=== PATIENT | male | born 1950 | race Caucasian/White ===

== ENCOUNTER 2019-03-05 07:29 | Day surgery (SDC) | payer MEDICARE, BC ==
[2019-03-05] MEDS: Lactated Ringers 1,000 ML IV SCH (08:13)
[2019-03-05] MEDS ORDERED: Midazolam 1 MG/ML 2 ML SDV ONE (08:21)
[2019-03-05] MEDS ORDERED: fentaNYL 100 MCG/2 ML SDV ONE (08:21)
[2019-03-05] MEDS ORDERED: Propofol 200 MG/20 ML SDV ONE (08:21)
[2019-03-05] MEDS ORDERED: diphenhydrAMINE 50 MG/ML SDV ONE (09:14)
--- NOTE | 2019-03-08 09:18 | OR ---
DATE OF PROCEDURE: 03/05/2019 SURGEON: Turner Shanks MD PREOPERATIVE DIAGNOSIS: History of adenomatous colon polyps. POSTOPERATIVE DIAGNOSES: Diverticulosis, small transverse colon polyp, history of adenomatous colon polyp. PROCEDURE PERFORMED: Colonoscopy to the cecum with biopsy resection of small transverse colon polyp. ANESTHESIA: IV anesthesia with monitored anesthesia care. INDICATION: This 68-year-old white male is referred for a colonoscopy. His last colonoscopic exam was done 5 years ago, which was clear. Prior to that he has had adenomatous polyps removed. I counseled him for the procedure, including risks and alternatives, and he gave his informed consent to proceed. DESCRIPTION OF PROCEDURE: The patient was placed in the left lateral decubitus position. IV anesthesia was administered by the Anesthesia Service. Time-out was held. A rectal exam was performed, which was unremarkable. The flexible video Olympus colonoscope was introduced through his anus, up his rectum, out his colon all the way to the cecum. En route, we saw multiple left-sided diverticula. There was no bleeding or inflammation associated with them. Once the cecum was reached, the scope was slowly withdrawn, examining the mucosa throughout. No mucosal abnormalities noted until we reached the more distal transverse colon. Here, a small polyp was seen, which was removed with the biopsy forceps. The scope was withdrawn further with no other additional lesions noted. The scope was retroflexed in the rectum with the distal rectum appearing unremarkable. The scope was straightened and removed. He tolerated the procedure well. Turner Shanks MD /[id number]
== END 2019-03-05 12:04 | disposition home or self-care (01) ==
LOC: JP.SDS 07:29
PROVIDERS: ATTEND Surgery
DX: Z12.11 Encounter for screening for malignant neoplasm of colon (principal); K57.30 Diverticulosis of large intestine without perforation or abscess without bleeding; K63.89 Other specified diseases of intestine; E11.9 Type 2 diabetes mellitus without complications; E78.5 Hyperlipidemia, unspecified; Z88.8 Allergy status to other drugs, medicaments and biological substances; Z86.010 Personal history of colon polyps
CPT/HCPCS: 45380; J1200; J2250; J2704; J3010; J7120

== ENCOUNTER 2020-07-06 08:26 | Emergency (ER) | payer MEDICARE, BC ==
[2020-07-06] MEDS ORDERED: Sodium Chloride 0.9% 10 ML Syringe FLUSH PRN (08:56)
[2020-07-06] MEDS ORDERED: Alum Hydrox/Mag Hydrox/Simeth 15 ML, Lidocaine 2% 15 ML PO ONE ×2 (09:01)
--- NOTE | 2020-07-06 09:02 | EDM.PDOC ---
ED HPI GENERAL MEDICAL PROBLEM - General Chief Complaint: Abdominal Pain Stated Complaint: ABDOMINAL PAIN Time Seen by Provider: 07/06/20 08:50 Source of Information: Reports: Patient, Old Records, RN History Limitations: Reports: No Limitations - History of Present Illness INITIAL COMMENTS - FREE TEXT/NARRATIVE: 69 yo male presents with epigastric pain since about 1 pm yesterday. Sx's began after eating a macaroni salad and was severe until about 5 am today, now still present but less severe. Pain radiated up substernally. No fever. No change in bowels. Did have mild nausea when the pain was more severe. Denies alcohol use. Does have his gallbladder. He called the clinic and was directed to the ER. Has not eaten since the onset of his sx's. Has had this same pain in the past. Onset: Sudden Onset Date: 07/05/20 Onset Time: 13:00 Duration: Hour(s):, Improving Location: Reports: Abdomen Quality: Reports: Pressure Severity: Moderate (now, was more severe earlier) Improves with: Reports: Other (? not eating) Worsens with: Reports: Eating (possibly eating) Context: Reports: Other (See HPI) Associated Symptoms: Reports: Nausea/Vomiting (no vomiting.). 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) - Related Data Allergies Allergy/AdvReac Type Severity Reaction Status Date / Time [id number] Reductase Allergy Other Verified 07/06/20 08:43 Inhibitor Home Meds: Home Meds Ascorbic Acid [Vitamin C] 500 mg PO DAILY 11/23/13 [History] Omeprazole [Prilosec] 20 mg PO DAILY 11/23/13 [History] Warfarin [Coumadin] 5 mg PO .MF 11/23/13 [History] Tamsulosin HCl 0.4 mg PO DAILY 03/03/19 [History] Triamcinolone Acetonide [Triamcinolone Acetonide 0.1% Crm] 1 applic TOP BID 03/03/19 [History] Warfarin [Coumadin] 10 mg PO .ROW 03/03/19 [History] Zinc 50 mg PO DAILY 07/06/20 [History] Past Medical History HEENT History: Reports: Impaired Vision Cardiovascular History: Reports: High Cholesterol Gastrointestinal History: Reports: Colon Polyp, GERD Neurological History: Reports: Migraines Endocrine/Metabolic History: Reports: Obesity/BMI 30+ - Infectious Disease History Infectious Disease History: Reports: Measles, Novel Coronavirus - Past Surgical History Head Surgeries/Procedures: Reports: None Cardiovascular Surgical History: Reports: None GI Surgical History: Reports: Colonoscopy, EGD, Hernia Repair/Other Endocrine Surgical History: Reports: None Neurological Surgical History: Reports: None Dermatological Surgical History: Reports: None Social & Family History - Family History Family Medical History: No Pertinent Family History - Tobacco Use Tobacco Use Status *Q: Never Tobacco User Second Hand Smoke Exposure: No - Caffeine Use Caffeine Use: Reports: Coffee - Recreational Drug Use Recreational Drug Use: No ED ROS GENERAL - Review of Systems Review Of Systems: See Below Constitutional: Reports: No Symptoms HEENT: Reports: No Symptoms Respiratory: Reports: No Symptoms Cardiovascular: Reports: No Symptoms GI/Abdominal: Reports: Abdominal Pain (epigastric), Nausea. Denies: Black Stool, Bloody Stool, Constipation, Diarrhea, Distension, Hematemesis, Hematochezia, Melena, Vomiting : Reports: No Symptoms Musculoskeletal: Reports: No Symptoms Skin: Reports: No Symptoms Neurological: Reports: No Symptoms ED EXAM, GI/ABD - Physical Exam Exam: See Below Exam Limited By: No Limitations General Appearance: Alert, WD/WN, No Apparent Distress, Obese Eyes: Bilateral: Normal Appearance Ears: Normal External Exam, Normal Canal, Hearing Grossly Normal Nose: Normal Inspection, No Blood Throat/Mouth: Normal Lips, Normal Oropharynx, Normal Voice, No Airway Compromise, Other (slightly dry oral mucosa) Head: Atraumatic, Normocephalic Neck: Normal Inspection Respiratory/Chest: No Respiratory Distress, Lungs Clear, Normal Breath Sounds, No Accessory Muscle Use Cardiovascular: Regular Rate, Rhythm, No Edema GI/Abdominal Exam: Normal Bowel Sounds, Soft, No Distention (protuberant with ventral hernia), Tender (epigastrium). No: Non-Tender, Distended, Guarding, Rigid, Rebound Extremities: Normal Inspection Neurological: Alert, Oriented, CN II-XII Intact, Normal Cognition, No Motor/Sensory Deficits Psychiatric: Normal Affect, Normal Mood Skin Exam: Warm, Dry, Intact, Normal Color, No Rash Course - Vital Signs Text/Narrative:: Dr. Quiroz called @ 11:26h. Last Recorded V/S: Last Vital Signs Temp 36.2 C 07/06/20 08:34 Pulse 91 07/06/20 08:34 Resp 14 07/06/20 08:34 BP 180/93 H 07/06/20 08:34 Pulse Ox 98 07/06/20 08:34 - Orders/Labs/Meds Orders: Active Orders 24 hr Category Date Time Status Sodium Chloride 0.9% [Saline Flush] Med 07/06/20 08:56 Active 10 ml FLUSH ASDIRECTED PRN Saline Lock Insert [OM.PC] Routine Oth 07/06/20 08:56 Ordered Medication Orders Sodium Chloride (Saline Flush) 10 ml FLUSH ASDIRECTED PRN PRN Reason: Keep Vein Open Last Admin: 07/06/20 09:09 Dose: 10 ml Documented by: SARTHAK Labs: Laboratory Tests 07/06/20 07/06/20 07/06/20 Range/Units 08:57 09:05 09:09 WBC 8.7 (4.5-11.0) K/uL RBC 5.91 H (4.30-5.90) M/uL Hgb 16.4 H (12.0-15.0) g/dL Hct 50.3 (40.0-54.0) % MCV 85 (80-98) fL MCH 28 (27-31) pg MCHC 33 (32-36) % Plt Count 199 (150-400) K/uL PT 21.1 H (9.5-12.0) sec INR 1.96 H (0.80-1.20) Sodium 141 (140-148) mmol/L Potassium 3.4 L (3.6-5.2) mmol/L Chloride 104 (100-108) mmol/L Carbon Dioxide 25 (21-32) mmol/L Anion Gap 15.4 H (5.0-14.0) mmol/L BUN 14 (7-18) mg/dL Creatinine 0.8 (0.8-1.3) mg/dL Est Cr Clr Drug Dosing 90.20 mL/min Estimated GFR (MDRD) > 60 (>60) Glucose 148 H (74-106) mg/dL Calcium 8.7 (8.5-10.1) mg/dL Total Bilirubin 0.9 (0.2-1.0) mg/dL AST 32 (15-37) U/L ALT 73 (12-78) U/L Alkaline Phosphatase 84 (46-116) U/L Troponin I < 0.017 (0.000-0.056) ng/mL Total Protein 6.5 (6.4-8.2) g/dL Albumin 3.4 (3.4-5.0) g/dL Globulin 3.1 (2.3-3.5) g/dL Albumin/Globulin Ratio 1.1 L (1.2-2.2) Lipase 123 (73-393) U/L Meds: Medications Generic Name Dose Route Start Last Admin Trade Name Freq PRN Reason Stop Dose Admin Sodium Chloride 10 ml 07/06/20 08:56 07/06/20 09:09 Saline Flush FLUSH 10 ml ASDIRECTED PRN Administration Keep Vein Open Discontinued Medications Generic Name Dose Route Start Last Admin Trade Name Freq PRN Reason Stop Dose Admin Al Hydroxide/Mg Hydroxide 15 0 ml 07/06/20 09:01 07/06/20 09:09 ml/ Lidocaine HCl 15 ml PO 07/06/20 09:02 15 ml ONETIME ONE Administration Simethicone 160 mg 07/06/20 10:48 07/06/20 10:51 Simethicone PO 07/06/20 10:49 160 mg ONETIME ONE Administration - Radiology Interpretation Free Text/Narrative:: GB ultrasound-positive Maldonado sign, stone seen near neck of GB, lots of surrounding intestinal air. - Re-Assessments/Exams Free Text/Narrative Re-Assessment/Exam: 07/06/20 09:47 No change in sx's with GI cocktail po. Free Text/Narrative Re-Assessment/Exam: 07/06/20 11:12 Was given 160 mg of simethicone for his intestinal gas problem. 07/06/20 11:24 No change with simethicone. Departure - Departure Time of Disposition: 12:56 Disposition: Admitted As Inpatient 64 Condition: Fair Clinical Impression: Biliary colic, Blood glucose elevated HTN (hypertension) Qualifiers: Hypertension type: unspecified Qualified Code(s): I10 - Essential (primary) hypertension - Discharge Information *PRESCRIPTION DRUG MONITORING PROGRAM REVIEWED*: No *COPY OF PRESCRIPTION DRUG MONITORING REPORT IN PATIENT TICO: No Referrals: PCP,None [Primary Care Provider] - Forms: ED Department Discharge Sepsis Event Note (ED) - Evaluation Sepsis Screening Result: No Definite Risk - Focused Exam Vital Signs: Vital Signs Temp Pulse Resp BP Pulse Ox 02/25/21 08:34 36.2 C 91 14 180/93 H 98 07/06/20 08:33 36.2 C 91 14 180/93 H 98 - My Orders Last 24 Hours: My Active Orders 07/06/20 08:56 Sodium Chloride 0.9% [Saline Flush] 10 ml FLUSH ASDIRECTED PRN Saline Lock Insert [OM.PC] Routine - Assessment/Plan Last 24 Hours: My Active Orders 07/06/20 08:56 Sodium Chloride 0.9% [Saline Flush] 10 ml FLUSH ASDIRECTED PRN Saline Lock Insert [OM.PC] Routine
[2020-07-06] MEDS ORDERED: Simethicone 80 MG Tab.Chew PO ONE (10:48)
--- NOTE | 2020-07-06 11:29 | US ---
Abdomen Ltd CLINICAL HISTORY: Postprandial epigastric pain COMPARISON: None. TECHNIQUE: Real-time images were obtained through the right upper quadrant. FINDINGS: The liver is free of mass or biliary dilatation. There is diffusely increased echogenicity with some beam drop-off.. The gallbladder contains multiple small stones. There is gallbladder wall thickening at 4 mm. There appears to be a small amount of pericholecystic fluid at the hepatic interface. The common bile duct measures 4 mm. The pancreas is moderately obscured. The right kidney measures 11.6 x 4.6 x 6.3 cm.. The IVC is obscured. IMPRESSION: Cholelithiasis with some mild gallbladder wall thickening. There also appears to be some minimal pericholecystic fluid. Acute cholecystitis is not excluded. No biliary dilatation Pancreas and IVC are obscured by bowel gas
[2020-07-06] MEDS ORDERED: Benzocaine/Cetylpyridinium/Menthol Lozenge MUCMEM PRN (13:20)
[2020-07-06] MEDS ORDERED: fentaNYL 100 MCG/2 ML SDV IVPUSH PRN (13:20)
[2020-07-06] MEDS ORDERED: Sodium Chloride 0.9% 10 ML SDV IV SCH (13:30)
[2020-07-06] MEDS ORDERED: Bupivacaine 0.5% 50 ML MDV ONE (13:39)
[2020-07-06] MEDS ORDERED: Lidocaine 1% with EPINEPHrine 1:100,000 50 ML MDV ONE (13:39)
[2020-07-06] MEDS ORDERED: Sodium Chloride 0.9% 1,000 ML IV SCH (13:45)
[2020-07-06] MEDS ORDERED: ceFAZolin 2 GM in Premix Bag 1 BAG IV SCH (14:00)
[2020-07-06] MEDS ORDERED: Enoxaparin 40 MG/0.4 ML Syringe SUBCUT ONE (14:00)
[2020-07-06] MEDS ORDERED: metroNIDAZOLE/Normal Saline 500 MG in Premix Bag 1 BAG IV SCH (14:30)
== END 2020-07-06 13:19 | disposition critical access hospital (66) ==
LOC: JP.ED 08:26 → JP.SDS 12:59
DX: K80.50 Calculus of bile duct without cholangitis or cholecystitis without obstruction (principal); I10 Essential (primary) hypertension; R73.9 Hyperglycemia, unspecified; K21.9 Gastro-esophageal reflux disease without esophagitis; E66.9 Obesity, unspecified; Z68.35 Body mass index [BMI] 35.0-35.9, adult; Z88.8 Allergy status to other drugs, medicaments and biological substances; Z79.899 Other long term (current) drug therapy; Z20.822 Contact with and (suspected) exposure to COVID-19
CPT/HCPCS: 36415; 76705; 76705-26; 80053; 83690; 84484; 85027; 85610; 99285; A9270-GY; J1650; J3490; U0002

== ENCOUNTER 2020-07-10 05:59 | Day surgery (SDC) | payer MEDICARE, BC ==
[2020-07-10] MEDS: Sodium Chloride 0.9% 1,000 ML IV SCH ×2 (06:47→11:57)
[2020-07-10] MEDS ORDERED: ceFAZolin 2 GM in Premix Bag 1 BAG IV ONE (07:15)
[2020-07-10] MEDS ORDERED: metroNIDAZOLE/Normal Saline 500 MG in Premix Bag 1 BAG IV ONE (07:15)
[2020-07-10] MEDS ORDERED: Neostigmine Methylsulfate 1 MG/ML 5 ML Syringe ONE (07:20)
[2020-07-10] MEDS ORDERED: Ondansetron 4 MG/2 ML SDV ONE (07:20)
[2020-07-10] MEDS ORDERED: Dexamethasone 4 MG/ML SDV ONE (07:20)
[2020-07-10] MEDS ORDERED: Glycopyrrolate 0.2 MG/ML 5 ML MDV ONE (07:20)
[2020-07-10] MEDS ORDERED: Succinylcholine 200 MG/10 ML MDV ONE (07:20)
[2020-07-10] MEDS ORDERED: Rocuronium 50 MG/5 ML Vial ONE (07:20)
[2020-07-10] MEDS ORDERED: Propofol 200 MG/20 ML SDV ONE (07:20)
[2020-07-10] MEDS ORDERED: fentaNYL 250 MCG/5 ML SDV ONE (07:22)
[2020-07-10] MEDS ORDERED: diphenhydrAMINE 50 MG/ML SDV ONE (07:23)
[2020-07-10] MEDS ORDERED: Acetaminophen/HYDROcodone 325-5 MG Tab PO PRN (07:38)
[2020-07-10] MEDS ORDERED: Zolpidem 5 MG Tab PO PRN (07:38)
[2020-07-10] MEDS ORDERED: Docusate Sodium 100 MG Cap PO PRN (07:38)
[2020-07-10] MEDS ORDERED: hydrOXYzine HCL 100 MG/2 ML SDV IM PRN (07:38)
[2020-07-10] MEDS ORDERED: Benzocaine/Cetylpyridinium/Menthol Lozenge MUCMEM PRN (07:38)
[2020-07-10] MEDS ORDERED: fentaNYL 100 MCG/2 ML SDV ONE ×2 (07:54→08:45)
[2020-07-10] MEDS: Lidocaine 1% with EPINEPHrine 1:100,000 50 ML MDV ONE ×2 (08:23→09:00)
[2020-07-10] MEDS: Bupivacaine 0.5% 50 ML MDV ONE ×2 (08:23→09:00)
--- NOTE | 2020-07-10 10:56 | OR ---
DATE OF PROCEDURE: 07/10/2020 SURGEON: Anthony Quiroz MD PROCEDURES: 1. Laparoscopic cholecystectomy. 2. Lysis of adhesions. FINDINGS: Dense adhesions associated with mesh in right upper quadrant. COMPLICATIONS: None. 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 ANESTHESIA: General/local. RISKS: Risks, benefits, alternatives, and limitations including, but not limited to infection, bleeding, cystic duct leaks, common bile duct injuries, possibility of open surgery, hematoma, seroma, abscess, and other risks not listed here were explained to the patient and he wished to proceed. PROCEDURE IN DETAIL: The patient was placed in supine position. In the right abdomen, a cutdown was performed and an Optiview trocar was inserted. There was noted to be artifact in the way, however, this did insufflate the abdomen. Therefore, in the mid abdomen, an additional 12 mm port was entered under direct visualization. The mesh, which the patient was unable to tell me where it was and was unable to be found in the medical record was actually in the right upper quadrant. Two additional 5 mm ports were entered under direct visualization. In the next 30 minutes, dissection occurred freeing the omentum from the mesh. There was bowel noted but this was not interacted with in anyway. Eventually, this was dissected free. There was minimal blood loss. The gallbladder was noted to be hydrops. This was aspirated. Clear fluid was noted. This continued on with blunt dissection for the next approximately 20 minutes. A single pulsatile structure in the gallbladder and a single non- pulsatile structure was noted entering the gallbladder. A "clear view" of the gallbladder was obtained with approximately 70% of the gallbladder dissected freely. The remaining 1/3rd was dissected off the gallbladder bed. This was then clipped and transected. A stapler was used due to the inflammation of the cystic duct which was approximately the same size of the clips. However, due to concern for a postoperative cystic duct leak, this was transected using staple loads. The gallbladder was removed through the superior port with moderate difficulty due to its size causing the Pean to be enlarged. This and the other large 12 mm port sites would be closed at the end of the case with interrupted 0 Vicryl suture. After once gallbladder was removed, the abdomen was irrigated. Electrocautery was used to control any bleeding. The pressure was dropped. No abnormal bleeding was noted. An additional liter of irrigation was used to irrigate the abdomen and subsequently removed. The air was removed. The wounds were closed with 3-0 Vicryl and 4-0 Vicryl in interrupted running fashion. Dermabond was applied. The patient tolerated the procedure well. Anthony Quiroz MD /[id number]
--- NOTE | 2020-07-10 14:46 | OR ---
DATE OF PROCEDURE: 07/10/2020 SURGEON: Anthony Quiroz MD PROCEDURES: 1. Bilateral TAP block. 2. Bilateral rectus sheath block. COMPLICATIONS: None. 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 RISKS: Risks, benefits, alternatives, and limitations including, but not limited to infection, bleeding, injury to abdominal structures were explained to the patient who wished to proceed. PROCEDURE IN DETAIL: The patient was placed in supine position. The right transversus plane was identified first. This was accessed using a 13 megahertz ultrasound probe. 20% of the solution was injected. This was then followed with the right rectus, left rectus, and left transversus planes, injecting approximately 20% of the solution into each under ultrasound guidance inadvertently advanced. The patient tolerated the procedure well. Anthony Quiroz MD /[id number]
== END 2020-07-10 15:15 | disposition home or self-care (01) ==
LOC: JP.SDS 05:59 → JP.MS 10:10 → JP.SDS 15:15
PROVIDERS: ATTEND Surgery
DX: K80.12 Calculus of gallbladder with acute and chronic cholecystitis without obstruction (principal); K66.0 Peritoneal adhesions (postprocedural) (postinfection); K21.9 Gastro-esophageal reflux disease without esophagitis; I10 Essential (primary) hypertension; E78.00 Pure hypercholesterolemia, unspecified; E11.9 Type 2 diabetes mellitus without complications; E66.9 Obesity, unspecified; Z68.35 Body mass index [BMI] 35.0-35.9, adult; Z88.8 Allergy status to other drugs, medicaments and biological substances; Z86.16 Personal history of COVID-19; Z86.010 Personal history of colon polyps; Z86.718 Personal history of other venous thrombosis and embolism; Z79.01 Long term (current) use of anticoagulants; Z79.899 Other long term (current) drug therapy
CPT/HCPCS: 47562; A9270; J0171; J0330; J0690; J1100; J1200; J2405; J2704; J2710; J2795; J3010; J3490; J7030; J7120

== ENCOUNTER 2024-07-22 06:24 | Day surgery (SDC) | payer MEDICARE, BC ==
[2024-07-22] MEDS: Lactated Ringers 1,000 ML IV SCH (07:05)
[2024-07-22] MEDS ORDERED: Propofol 200 MG/20 ML SDV ONE (07:09)
[2024-07-22] MEDS ORDERED: fentaNYL 100 MCG/2 ML SDV ONE (07:09)
[2024-07-22] MEDS: diphenhydrAMINE 50 MG/ML SDV IVPUSH ONE (07:16)
== END 2024-07-22 09:29 | disposition home or self-care (01) ==
LOC: JP.SDS 06:24
PROVIDERS: ATTEND Surgery
DX: Z12.11 Encounter for screening for malignant neoplasm of colon (principal); K63.5 Polyp of colon; K62.1 Rectal polyp; K57.30 Diverticulosis of large intestine without perforation or abscess without bleeding; E78.5 Hyperlipidemia, unspecified; I10 Essential (primary) hypertension; Z88.8 Allergy status to other drugs, medicaments and biological substances
CPT/HCPCS: 00812-QZ; J1200; J2704; J3010; J7120

== ENCOUNTER 2025-01-02 17:53 | Emergency (ER) | payer MEDICARE, BC ==
[2025-01-02 19:58] LABS: BASOPHILS ABSOLUTE AUTO 0.04 K/uL (0.00-0.10); BASOPHILS PERCENT AUTO 0.4 % (0.1-1.3); EOSINOPHILS ABSOLUTE AUTO 0.07 K/uL (0.00-0.40); EOSINOPHILS PERCENT AUTO 0.7 % (0.0-5.4); IMMATURE GRAN ABSOLUTE AUTO 0.04 K/uL (0.00-0.23); IMMATURE GRAN PERCENT AUTO 0.4 % (0.0-0.7); LYMPHOCYTES ABSOLUTE AUTO 1.04 K/uL (0.8-3.3); LYMPHOCYTES PERCENT AUTO 10.9 % (11.4-47.7); MONOCYTES ABSOLUTE AUTO 1.15 K/uL (0.20-0.90); MONOCYTES PERCENT AUTO 12.0 % (3.3-12.6); NEUTROPHILS ABSOLUTE AUTO 7.22 K/uL (1.0-7.6); NEUTROPHILS PERCENT AUTO 75.6 % (40.0-78.1); PLATELET COUNT,PLT 183 K/uL (130-375); RED BLOOD CELL COUNT 5.67 M/uL (4.14-5.76); WHITE BLOOD CELL COUNT,WBC 9.6 K/uL (3.2-11.0)
[2025-01-02] MEDS ORDERED: Naloxone 0.4 MG/ML SDV IVPUSH PRN (20:05)
[2025-01-02] MEDS ORDERED: Sodium Chloride 0.9% 10 ML Syringe FLUSH PRN (20:05)
[2025-01-02 20:20] LABS: A/G RATIO 0.9 (1.2-2.2); ALANINE AMINOTRANSFERASE,ALT 45 U/L (12-78); ASPARTATE AMNIOTRANSFERASE,AST 29 U/L (15-37); BILIRUBIN TOTAL 1.0 mg/dL (0.2-1.0); BLOOD UREA NITROGEN,BUN 18 mg/dL (7-18); CARBON DIOXIDE,CO2 28 mmol/L (21-32); CHLORIDE,CL 104 mmol/L (100-108); CREATININE 1.3 mg/dL (0.8-1.3); EST CRCL DRUG DOSING (CG) 49.91 mL/min; ESTIMATED GFR 57 mL/min (>60); GLUCOSE RANDOM 134 mg/dL (74-106); POTASSIUM,K 4.1 mmol/L (3.6-5.2); PROTEIN TOTAL,TP 7.4 g/dL (6.4-8.2); SODIUM,NA 141 mmol/L (140-148)
[2025-01-02 20:49] LABS: APPEARANCE,URINE CLEAR (CLEAR); GLUCOSE,URINE NEGATIVE (NEGATIVE); OCCULT BLOOD,URINE MODERATE (NEGATIVE)
[2025-01-02 20:58] LABS: SQUAMOUS EPITHELIAL CELLS,UR RARE /HPF; UROTHELIAL CELLS,URINE NOT SEEN /HPF
[2025-01-02] MEDS: Sodium Chloride 0.9% 10 ML Syringe FLUSH ONE (21:02)
[2025-01-02] MEDS: Iopamidol 612 MG/ML 100 ML Bottle IV ONE (21:02)
== END 2025-01-02 23:18 | disposition home or self-care (01) ==
LOC: JP.ED 17:53
DX: N13.2 Hydronephrosis with renal and ureteral calculous obstruction (principal); E66.9 Obesity, unspecified; K21.9 Gastro-esophageal reflux disease without esophagitis; M19.90 Unspecified osteoarthritis, unspecified site; Z79.899 Other long term (current) drug therapy; Z88.8 Allergy status to other drugs, medicaments and biological substances; Z79.01 Long term (current) use of anticoagulants; Z79.84 Long term (current) use of oral hypoglycemic drugs; Z86.16 Personal history of COVID-19; Z68.36 Body mass index [BMI] 36.0-36.9, adult
CPT/HCPCS: 36415; 74177; 80053; 81001; 85025; 96361; 96374; 99284; A9270; J7030; Q9967; J1171